=== PATIENT | female | born 1955 | race Hispanic/Latino ===

== ENCOUNTER 2021-01-11 11:56 | Inpatient (IN) | payer MEDICARE ==
[2021-01-11] MEDS ORDERED: oxyCODONE 5 MG TAB PO SCH (13:30)
[2021-01-11] MEDS ORDERED: Lidocaine 4% Topical Sol 50 ML BOT TOP PRN (14:25)
[2021-01-11] MEDS ORDERED: Ondansetron ODT 4 MG TAB PO PRN ×2 (14:26→19:40)
[2021-01-11] MEDS: fentaNYL 50 mcg/hour Patch TD SCH (14:58)
[2021-01-11] MEDS: HumuLIN 70/30 (300 UNITS/3 ML VIAL) SC SCH (16:56)
[2021-01-11] MEDS: oxyCODONE 5 MG TAB PO PRN (19:20)
[2021-01-11] MEDS ORDERED: Loperamide HCl 2 MG CAP PO PRN ×4 (19:40)
[2021-01-11] MEDS ORDERED: Bisacodyl 10 MG SUPP PR PRN (19:40)
[2021-01-11] MEDS ORDERED: Senokot S 8.6-50 MG TAB PO PRN (19:40)
[2021-01-11] MEDS ORDERED: Sodium Chloride 0.65% Nasal 44 ML BOT EA NARE PRN (19:40)
[2021-01-11] MEDS ORDERED: Calcium Carbonate 500 MG ChewTAB PO PRN (19:40)
[2021-01-11] MEDS ORDERED: Bisacodyl 5 MG TAB PO PRN (19:40)
[2021-01-11] MEDS ORDERED: Benzonatate 100 MG CAP PO PRN (19:40)
[2021-01-11] MEDS ORDERED: Mirtazapine 15 MG TAB PO SCH (21:00)
[2021-01-11] MEDS: Atorvastatin Calcium 40 MG TAB PO SCH (21:16)
[2021-01-11] MEDS: Gabapentin 300 MG CAP PO SCH (21:16)
[2021-01-11] MEDS: HYDROcodone/Acetaminophen 10/325 mg Tablet PO PRN (21:17)
[2021-01-11] MEDS: Amiodarone 200 MG TAB PO SCH (21:17)
[2021-01-11] MEDS: Famotidine 20 MG TAB PO SCH (21:18)
[2021-01-11] MEDS ORDERED: Famotidine 20 MG TAB ONE (22:02)
[2021-01-12] MEDS: oxyCODONE 5 MG TAB PO PRN ×3 (01:34→18:34)
[2021-01-12] MEDS: Levothyroxine Sodium 125 MCG TAB PO SCH (05:55)
[2021-01-12 07:08] LABS: Anion Gap 18 mmol/L (10-20); BUN (Urea Nitrogen) 37 mg/dL (9.8-20.1); Calc. Creatinine Clearance 21 mL/min (70-130); Calcium 8.3 mg/dL (7.8-10.44); Carbon Dioxide 25 mmol/L (23-31); Chloride 94 mmol/L (98-107); Glucose 76 mg/dL (80-115); Potassium 4.6 mmol/L (3.5-5.1); Sodium 132 mmol/L (136-145)
[2021-01-12 07:26] LABS: Hemoglobin 8.5 g/dL (12.0-16.0); Mean Corpuscular HGB CONC 28.7 g/dL (32.0-36.0); Mean Corpuscular Hemoglobin 26.9 pg (27.0-31.0); Mean Corpuscular Volume 93.8 fL (78.0-98.0); Mean Platelet Volume 6.8 fL (7.4-10.4); Platelet Count 234 thou/uL (130-400); Red Blood Cell (RBC) Count 3.14 mill/uL (4.20-5.40); White Blood Cell (WBC) Count 8.2 thou/uL (4.8-10.8)
[2021-01-12 07:27] LABS: #Basophils 0.1 thou/uL (0.0-0.2); #Eosinphils 0.2 thou/uL (0.0-0.7); #Lymphocytes 1.6 thou/uL (1.20-3.40); #Monocytes 0.7 thou/uL (0.11-0.59); #Neutrophils 5.6 thou/uL (1.40-6.50); %Basophils 0.9 % (0.0-1.0); %Eosinophils 2.9 % (0.0-10.0); %Lymphocytes 19.3 % (21.0-51.0); %Monocytes 8.6 % (0.0-10.0); %Neutrophils 68.3 % (42.0-75.0)
[2021-01-12 08:29] LABS: SARS-CoV-2 PCR by NAA Not Detected (NotDetected)
[2021-01-12] MEDS: HumuLIN 70/30 (300 UNITS/3 ML VIAL) SC SCH ×2 (08:30→18:32)
[2021-01-12] MEDS: Lactinex Tablet PO SCH (08:42)
[2021-01-12] MEDS: Enoxaparin Sodium 30 MG/0.3 ML SYRINGE SC SCH (08:42)
[2021-01-12] MEDS: Gabapentin 300 MG CAP PO SCH ×2 (08:43→20:58)
[2021-01-12] MEDS: Ferrous Sulfate 325 MG TAB PO SCH (08:46)
[2021-01-12] MEDS: HYDROcodone/Acetaminophen 10/325 mg Tablet PO PRN ×2 (08:46→21:00)
[2021-01-12] MEDS: Amiodarone 200 MG TAB PO SCH ×2 (08:46→20:58)
[2021-01-12] MEDS: Mirtazapine 15 MG TAB PO SCH (20:58)
[2021-01-12] MEDS: Atorvastatin Calcium 40 MG TAB PO SCH (20:59)
[2021-01-12] MEDS: Famotidine 20 MG TAB PO SCH (20:59)
[2021-01-13] MEDS: Levothyroxine Sodium 125 MCG TAB PO SCH (05:55)
[2021-01-13] MEDS: Enoxaparin Sodium 30 MG/0.3 ML SYRINGE SC SCH (08:29)
[2021-01-13] MEDS: HYDROcodone/Acetaminophen 10/325 mg Tablet PO PRN ×2 (08:30→12:34)
[2021-01-13] MEDS: Amiodarone 200 MG TAB PO SCH ×2 (08:32→20:41)
[2021-01-13] MEDS: Gabapentin 300 MG CAP PO SCH ×2 (08:32→20:41)
[2021-01-13] MEDS: Lactinex Tablet PO SCH (08:33)
[2021-01-13] MEDS: Mirtazapine 15 MG TAB PO SCH ×2 (08:33→20:42)
[2021-01-13] MEDS: Ferrous Sulfate 325 MG TAB PO SCH (08:34)
[2021-01-13] MEDS: HumuLIN 70/30 (300 UNITS/3 ML VIAL) SC SCH ×2 (08:38→18:05)
[2021-01-13] MEDS: Atorvastatin Calcium 40 MG TAB PO SCH (20:41)
[2021-01-13] MEDS: Famotidine 20 MG TAB PO SCH (20:41)
[2021-01-14] MEDS: Levothyroxine Sodium 125 MCG TAB PO SCH (05:37)
[2021-01-14] MEDS: HYDROcodone/Acetaminophen 10/325 mg Tablet PO PRN ×3 (06:13→17:23)
[2021-01-14] MEDS: Ferrous Sulfate 325 MG TAB PO SCH (08:00)
[2021-01-14] MEDS: HumuLIN 70/30 (300 UNITS/3 ML VIAL) SC SCH ×2 (08:01→17:44)
[2021-01-14] MEDS: Gabapentin 300 MG CAP PO SCH ×2 (08:03→19:59)
[2021-01-14] MEDS: Mirtazapine 15 MG TAB PO SCH ×2 (08:05→19:59)
[2021-01-14] MEDS: Amiodarone 200 MG TAB PO SCH ×2 (08:06→20:00)
[2021-01-14] MEDS: Lactinex Tablet PO SCH (08:06)
[2021-01-14] MEDS: Enoxaparin Sodium 30 MG/0.3 ML SYRINGE SC SCH (08:09)
[2021-01-14] MEDS: fentaNYL 50 mcg/hour Patch TD SCH (17:30)
[2021-01-14] MEDS: Famotidine 20 MG TAB PO SCH (20:00)
[2021-01-14] MEDS: Atorvastatin Calcium 40 MG TAB PO SCH (20:00)
[2021-01-15 07:00] LABS: Albumin 2.4 g/dL (3.4-4.8); Anion Gap 17 mmol/L (10-20); BUN (Urea Nitrogen) 21 mg/dL (9.8-20.1); Bilirubin, Total 0.6 mg/dL (0.2-1.2); Calc. Creatinine Clearance 37 mL/min (70-130); Calcium 8.5 mg/dL (7.8-10.44); Carbon Dioxide 28 mmol/L (23-31); Chloride 95 mmol/L (98-107); Glucose 144 mg/dL (80-115); Protein, Total 6.7 g/dL (5.8-8.1); Sodium 136 mmol/L (136-145)
[2021-01-15 07:01] LABS: ALT (SGPT) 20 U/L (8-55); AST (SGOT) 34 U/L (5-34); Alkaline Phosphatase 159 U/L (40-110); Globulin 4.3 g/dL (2.4-3.5)
[2021-01-15] MEDS: Levothyroxine Sodium 125 MCG TAB PO SCH (07:19)
[2021-01-15 07:25] LABS: #Basophils 0.1 thou/uL (0.0-0.2); #Eosinphils 0.1 thou/uL (0.0-0.7); #Lymphocytes 1.7 thou/uL (1.20-3.40); #Monocytes 0.8 thou/uL (0.11-0.59); #Neutrophils 6.3 thou/uL (1.40-6.50); %Basophils 0.7 % (0.0-1.0); %Eosinophils 1.6 % (0.0-10.0); %Lymphocytes 18.6 % (21.0-51.0); %Neutrophils 70.1 % (42.0-75.0); Hemoglobin 7.3 g/dL (12.0-16.0); Mean Corpuscular HGB CONC 29.9 g/dL (32.0-36.0); Mean Corpuscular Hemoglobin 27.2 pg (27.0-31.0); Mean Corpuscular Volume 91.1 fL (78.0-98.0); Mean Platelet Volume 6.8 fL (7.4-10.4); Platelet Count 333 thou/uL (130-400); RBC Distribution Width 16.8 % (11.5-14.5); Red Blood Cell (RBC) Count 2.66 mill/uL (4.20-5.40)
[2021-01-15] MEDS: Amiodarone 200 MG TAB PO SCH ×2 (08:42→21:06)
[2021-01-15] MEDS: Lactinex Tablet PO SCH (08:42)
[2021-01-15] MEDS: Ferrous Sulfate 325 MG TAB PO SCH (08:42)
[2021-01-15] MEDS: Enoxaparin Sodium 30 MG/0.3 ML SYRINGE SC SCH (08:42)
[2021-01-15] MEDS: Gabapentin 300 MG CAP PO SCH ×2 (08:43→21:05)
[2021-01-15] MEDS: Mirtazapine 15 MG TAB PO SCH ×2 (08:43→21:05)
[2021-01-15] MEDS: HumuLIN 70/30 (300 UNITS/3 ML VIAL) SC SCH ×2 (08:45→17:28)
[2021-01-15] MEDS: HYDROcodone/Acetaminophen 10/325 mg Tablet PO PRN ×2 (12:06→21:06)
[2021-01-15] MEDS: oxyCODONE 5 MG TAB PO PRN (13:20)
[2021-01-15] MEDS: Cefepime 1 GM in Sodium Chloride 0.9% 100 ML IVPB SCH (14:25)
[2021-01-15] MEDS: Famotidine 20 MG TAB PO SCH (21:05)
[2021-01-15] MEDS: Atorvastatin Calcium 40 MG TAB PO SCH (21:05)
[2021-01-16] MEDS: Cefepime 1 GM in Sodium Chloride 0.9% 100 ML IVPB SCH (01:06)
[2021-01-16] MEDS: HYDROcodone/Acetaminophen 10/325 mg Tablet PO PRN ×3 (05:35→17:39)
[2021-01-16] MEDS: Levothyroxine Sodium 125 MCG TAB PO SCH (05:35)
[2021-01-16 05:57] LABS: Anion Gap 15 mmol/L (10-20); BUN (Urea Nitrogen) 32 mg/dL (9.8-20.1); Calc. Creatinine Clearance 27 mL/min (70-130); Calcium 8.4 mg/dL (7.8-10.44); Carbon Dioxide 29 mmol/L (23-31); Chloride 97 mmol/L (98-107); Glucose 155 mg/dL (80-115); Potassium 4.1 mmol/L (3.5-5.1); Sodium 137 mmol/L (136-145)
[2021-01-16 06:00] LABS: Anisocytosis SLIGHT = 6-15 cells (100X) (0-5/hpf); Band 11 % (5-11); Eosinophils 3 % (0-10); Hemoglobin 6.6 g/dL (12.0-16.0); Hypochromia SLIGHT = 6-15 cells (100X) (0-5/hpf); Lymphocytes 10 % (21-51); MDiff Complete? YES; Mean Corpuscular HGB CONC 28.9 g/dL (32.0-36.0); Mean Corpuscular Hemoglobin 26.9 pg (27.0-31.0); Mean Platelet Volume 6.8 fL (7.4-10.4); Monocytes 1 % (0-10); Neutrophil 75 % (42-75); Platelet Count 319 thou/uL (130-400); Platelet Morphology Comment Appears Adequate; Poikilocytosis SLIGHT = 6-15 cells (100X) (0-5/hpf); Polychromasia SLIGHT = 2-3 cells (100X) (0-2/hpf); RBC Distribution Width 16.9 % (11.5-14.5); Red Blood Cell (RBC) Count 2.44 mill/uL (4.20-5.40); White Blood Cell (WBC) Count 7.9 thou/uL (4.8-10.8)
[2021-01-16] MEDS: Mirtazapine 15 MG TAB PO SCH ×2 (08:44→20:59)
[2021-01-16] MEDS: Amiodarone 200 MG TAB PO SCH ×2 (08:44→21:00)
[2021-01-16] MEDS: Lactinex Tablet PO SCH (08:45)
[2021-01-16] MEDS: Enoxaparin Sodium 30 MG/0.3 ML SYRINGE SC SCH (08:45)
[2021-01-16] MEDS: Ferrous Sulfate 325 MG TAB PO SCH (08:45)
[2021-01-16] MEDS: Gabapentin 300 MG CAP PO SCH ×2 (08:45→21:00)
[2021-01-16] MEDS: HumuLIN 70/30 (300 UNITS/3 ML VIAL) SC SCH ×2 (08:46→17:39)
[2021-01-16] MEDS: oxyCODONE 5 MG TAB PO PRN (13:51)
[2021-01-16] MEDS: Famotidine 20 MG TAB PO SCH (20:58)
[2021-01-16] MEDS: Cefepime 0.5 GM in Sodium Chloride 0.9% 100 ML IVPB SCH (20:58)
[2021-01-16] MEDS: Atorvastatin Calcium 40 MG TAB PO SCH (20:59)
[2021-01-17] MEDS: HYDROcodone/Acetaminophen 10/325 mg Tablet PO PRN ×3 (03:54→18:47)
[2021-01-17] MEDS: Levothyroxine Sodium 125 MCG TAB PO SCH (05:16)
[2021-01-17 05:56] LABS: #Basophils 0.1 thou/uL (0.0-0.2); #Eosinphils 0.3 thou/uL (0.0-0.7); #Lymphocytes 1.1 thou/uL (1.20-3.40); #Monocytes 0.7 thou/uL (0.11-0.59); #Neutrophils 7.1 thou/uL (1.40-6.50); %Basophils 0.8 % (0.0-1.0); %Lymphocytes 12.1 % (21.0-51.0); %Monocytes 7.3 % (0.0-10.0); %Neutrophils 76.9 % (42.0-75.0); Hemoglobin 8.3 g/dL (12.0-16.0); Mean Corpuscular Hemoglobin 27.5 pg (27.0-31.0); Mean Corpuscular Volume 91.8 fL (78.0-98.0); Mean Platelet Volume 6.3 fL (7.4-10.4); Platelet Count 318 thou/uL (130-400); RBC Distribution Width 17.3 % (11.5-14.5); White Blood Cell (WBC) Count 9.2 thou/uL (4.8-10.8)
[2021-01-17] MEDS: HumuLIN 70/30 (300 UNITS/3 ML VIAL) SC SCH ×2 (08:14→18:56)
[2021-01-17] MEDS: Enoxaparin Sodium 30 MG/0.3 ML SYRINGE SC SCH (08:15)
[2021-01-17] MEDS: Mirtazapine 15 MG TAB PO SCH ×2 (08:15→19:58)
[2021-01-17] MEDS: Gabapentin 300 MG CAP PO SCH ×2 (08:16→19:58)
[2021-01-17] MEDS: Amiodarone 200 MG TAB PO SCH ×2 (08:17→19:58)
[2021-01-17] MEDS: Ferrous Sulfate 325 MG TAB PO SCH (08:17)
[2021-01-17] MEDS: Lactinex Tablet PO SCH (08:17)
[2021-01-17] MEDS: oxyCODONE 5 MG TAB PO PRN (11:20)
[2021-01-17] MEDS: fentaNYL 50 mcg/hour Patch TD SCH (18:55)
[2021-01-17] MEDS: Famotidine 20 MG TAB PO SCH (19:58)
[2021-01-17] MEDS: Atorvastatin Calcium 40 MG TAB PO SCH (19:58)
[2021-01-17] MEDS: Cefepime 0.5 GM in Sodium Chloride 0.9% 100 ML IVPB SCH (19:59)
[2021-01-18] MEDS: Levothyroxine Sodium 125 MCG TAB PO SCH (05:35)
[2021-01-18] MEDS: HYDROcodone/Acetaminophen 10/325 mg Tablet PO PRN ×2 (05:35→11:09)
[2021-01-18] MEDS: HumuLIN 70/30 (300 UNITS/3 ML VIAL) SC SCH ×2 (08:19→16:14)
[2021-01-18] MEDS: Ferrous Sulfate 325 MG TAB PO SCH (08:19)
[2021-01-18] MEDS: Amiodarone 200 MG TAB PO SCH ×2 (08:19→21:12)
[2021-01-18] MEDS: Gabapentin 300 MG CAP PO SCH ×2 (08:20→21:11)
[2021-01-18] MEDS: Enoxaparin Sodium 30 MG/0.3 ML SYRINGE SC SCH (08:20)
[2021-01-18] MEDS: Lactinex Tablet PO SCH (08:22)
[2021-01-18] MEDS: Mirtazapine 15 MG TAB PO SCH ×2 (08:22→21:12)
[2021-01-18] MEDS: oxyCODONE 5 MG TAB PO PRN (16:12)
[2021-01-18] MEDS ORDERED: Sodium Chloride 0.9% 10 ML ONE (20:04)
[2021-01-18] MEDS: Cefepime 0.5 GM in Sodium Chloride 0.9% 100 ML IVPB SCH (21:11)
[2021-01-18] MEDS: Atorvastatin Calcium 40 MG TAB PO SCH (21:13)
[2021-01-18] MEDS: Famotidine 20 MG TAB PO SCH (21:13)
[2021-01-19] MEDS ORDERED: Dextrose 50% Abboject 50 ML SYRINGE IVP PRN (02:30)
[2021-01-19] MEDS ORDERED: Dextrose 5% in Water 1,000 ML IV PRN (02:30)
[2021-01-19] MEDS: Levothyroxine Sodium 125 MCG TAB PO SCH (05:05)
[2021-01-19 06:45] LABS: Anisocytosis SLIGHT = 6-15 cells (100X) (0-5/hpf); Hemoglobin 8.6 g/dL (12.0-16.0); Hypochromia SLIGHT = 6-15 cells (100X) (0-5/hpf); MDiff Complete? YES; Mean Corpuscular Hemoglobin 26.5 pg (27.0-31.0); Mean Corpuscular Volume 91.7 fL (78.0-98.0); Mean Platelet Volume 6.6 fL (7.4-10.4); Platelet Count 320 thou/uL (130-400); RBC Distribution Width 17.7 % (11.5-14.5); Red Blood Cell (RBC) Count 3.25 mill/uL (4.20-5.40); Spherocytes SLIGHT = 1-5 cells (100X) (None Seen); White Blood Cell (WBC) Count 8.7 thou/uL (4.8-10.8)
[2021-01-19 06:47] LABS: Platelet Morphology Comment Appears Adequate
[2021-01-19] MEDS: HumuLIN 70/30 (300 UNITS/3 ML VIAL) SC SCH ×2 (07:45→16:14)
[2021-01-19] MEDS: Lactinex Tablet PO SCH (07:46)
[2021-01-19] MEDS: Enoxaparin Sodium 30 MG/0.3 ML SYRINGE SC SCH (07:46)
[2021-01-19] MEDS: Gabapentin 300 MG CAP PO SCH ×2 (07:46→20:58)
[2021-01-19] MEDS: oxyCODONE 5 MG TAB PO PRN ×2 (07:47→16:12)
[2021-01-19] MEDS: Ferrous Sulfate 325 MG TAB PO SCH (07:47)
[2021-01-19] MEDS: Mirtazapine 15 MG TAB PO SCH ×2 (07:47→20:59)
[2021-01-19] MEDS: Amiodarone 200 MG TAB PO SCH ×2 (07:48→20:58)
[2021-01-19] MEDS: HYDROcodone/Acetaminophen 10/325 mg Tablet PO PRN ×2 (10:13→18:15)
[2021-01-19] MEDS: Famotidine 20 MG TAB PO SCH (20:58)
[2021-01-19] MEDS: Cefepime 0.5 GM in Sodium Chloride 0.9% 100 ML IVPB SCH (20:58)
[2021-01-19] MEDS: Atorvastatin Calcium 40 MG TAB PO SCH (20:58)
[2021-01-19] MEDS ORDERED: Sodium Chloride 0.9% 20 ML ONE (21:06)
[2021-01-20] MEDS: Levothyroxine Sodium 125 MCG TAB PO SCH (05:26)
[2021-01-20] MEDS: oxyCODONE 5 MG TAB PO PRN ×3 (06:18→23:14)
[2021-01-20] MEDS: Mirtazapine 15 MG TAB PO SCH ×2 (09:25→20:41)
[2021-01-20] MEDS: HYDROcodone/Acetaminophen 10/325 mg Tablet PO PRN (09:25)
[2021-01-20] MEDS: Gabapentin 300 MG CAP PO SCH ×2 (09:25→20:41)
[2021-01-20] MEDS: Ferrous Sulfate 325 MG TAB PO SCH (09:26)
[2021-01-20] MEDS: Amiodarone 200 MG TAB PO SCH ×2 (09:26→20:41)
[2021-01-20] MEDS: Lactinex Tablet PO SCH (09:27)
[2021-01-20] MEDS: HumuLIN 70/30 (300 UNITS/3 ML VIAL) SC SCH ×2 (09:27→16:57)
[2021-01-20] MEDS: Enoxaparin Sodium 30 MG/0.3 ML SYRINGE SC SCH (09:28)
[2021-01-20] MEDS: fentaNYL 50 mcg/hour Patch TD SCH (14:43)
[2021-01-20 20:11] LABS: SARS-CoV-2 PCR by NAA Not Detected (NotDetected)
[2021-01-20] MEDS: Acetaminophen 325 MG TAB PO PRN (20:40)
[2021-01-20] MEDS: Atorvastatin Calcium 40 MG TAB PO SCH (20:41)
[2021-01-20] MEDS: Cefepime 0.5 GM in Sodium Chloride 0.9% 100 ML IVPB SCH (20:42)
[2021-01-20] MEDS: Famotidine 20 MG TAB PO SCH (20:42)
[2021-01-21] MEDS: HYDROcodone/Acetaminophen 10/325 mg Tablet PO PRN ×2 (00:32→08:24)
[2021-01-21] MEDS: oxyCODONE 5 MG TAB PO PRN ×2 (03:37→16:57)
[2021-01-21] MEDS: Levothyroxine Sodium 125 MCG TAB PO SCH (05:05)
[2021-01-21] MEDS: Lactinex Tablet PO SCH (08:21)
[2021-01-21] MEDS: Enoxaparin Sodium 30 MG/0.3 ML SYRINGE SC SCH (08:21)
[2021-01-21] MEDS: Gabapentin 300 MG CAP PO SCH ×2 (08:21→21:03)
[2021-01-21] MEDS: HumuLIN 70/30 (300 UNITS/3 ML VIAL) SC SCH ×2 (08:21→16:59)
[2021-01-21] MEDS: Amiodarone 200 MG TAB PO SCH ×2 (08:22→21:03)
[2021-01-21] MEDS: Ferrous Sulfate 325 MG TAB PO SCH (08:22)
[2021-01-21] MEDS: Mirtazapine 15 MG TAB PO SCH ×2 (08:22→21:03)
[2021-01-21] MEDS ORDERED: Sodium Chloride 0.9% 10 ML ONE (20:42)
[2021-01-21] MEDS: Famotidine 20 MG TAB PO SCH (21:03)
[2021-01-21] MEDS: Atorvastatin Calcium 40 MG TAB PO SCH (21:03)
[2021-01-21] MEDS: Cefepime 0.5 GM in Sodium Chloride 0.9% 100 ML IVPB SCH (21:04)
[2021-01-22] MEDS: Levothyroxine Sodium 125 MCG TAB PO SCH (05:21)
[2021-01-22] MEDS: Acetaminophen 325 MG TAB PO PRN (06:13)
[2021-01-22 07:35] LABS: Anisocytosis MODERATE=16-30 cells (100X) (0-5/hpf); Band 6 % (5-11); Hemoglobin 8.7 g/dL (12.0-16.0); Hypochromia MODERATE=16-30 cells (100X) (0-5/hpf); Lymphocytes 31 % (21-51); MDiff Complete? YES; Mean Corpuscular HGB CONC 29.8 g/dL (32.0-36.0); Mean Corpuscular Hemoglobin 27.1 pg (27.0-31.0); Mean Corpuscular Volume 91.1 fL (78.0-98.0); Mean Platelet Volume 6.7 fL (7.4-10.4); Microcytosis SLIGHT = 6-15 cells (100X) (0-5/hpf); Monocytes 10 % (0-10); Neutrophil 42 % (42-75); Platelet Count 266 thou/uL (130-400); Platelet Morphology Comment Appears Adequate; Poikilocytosis MODERATE=16-30 cells (100X) (0-5/hpf); RBC Distribution Width 16.9 % (11.5-14.5); Reactive Lymphocytes 11 % (0-10); White Blood Cell (WBC) Count 10.4 thou/uL (4.8-10.8)
[2021-01-22] MEDS: HumuLIN 70/30 (300 UNITS/3 ML VIAL) SC SCH ×2 (08:10→17:26)
[2021-01-22] MEDS: Ferrous Sulfate 325 MG TAB PO SCH (08:11)
[2021-01-22] MEDS: Enoxaparin Sodium 30 MG/0.3 ML SYRINGE SC SCH (08:11)
[2021-01-22] MEDS: Gabapentin 300 MG CAP PO SCH ×2 (08:11→21:24)
[2021-01-22] MEDS: Amiodarone 200 MG TAB PO SCH ×2 (08:11→21:26)
[2021-01-22] MEDS: Lactinex Tablet PO SCH (08:12)
[2021-01-22] MEDS: Mirtazapine 15 MG TAB PO SCH ×2 (08:12→21:26)
[2021-01-22] MEDS: HYDROcodone/Acetaminophen 10/325 mg Tablet PO PRN ×3 (08:13→22:28)
[2021-01-22] MEDS: Cefepime 0.5 GM in Sodium Chloride 0.9% 100 ML IVPB SCH (21:24)
[2021-01-22] MEDS: Famotidine 20 MG TAB PO SCH (21:25)
[2021-01-22] MEDS: Atorvastatin Calcium 40 MG TAB PO SCH (21:26)
[2021-01-23] MEDS: HYDROcodone/Acetaminophen 10/325 mg Tablet PO PRN ×3 (04:43→20:47)
[2021-01-23] MEDS: Levothyroxine Sodium 125 MCG TAB PO SCH (04:44)
[2021-01-23 06:30] VITALS: BMI 43.2
[2021-01-23] MEDS: Ferrous Sulfate 325 MG TAB PO SCH (08:37)
[2021-01-23] MEDS: Enoxaparin Sodium 30 MG/0.3 ML SYRINGE SC SCH (08:37)
[2021-01-23] MEDS: HumuLIN 70/30 (300 UNITS/3 ML VIAL) SC SCH ×2 (08:37→16:59)
[2021-01-23] MEDS: Amiodarone 200 MG TAB PO SCH ×2 (08:37→20:50)
[2021-01-23] MEDS: Gabapentin 300 MG CAP PO SCH ×2 (08:38→20:51)
[2021-01-23] MEDS: Lactinex Tablet PO SCH (08:38)
[2021-01-23] MEDS: Mirtazapine 15 MG TAB PO SCH ×2 (08:39→20:50)
[2021-01-23] MEDS: fentaNYL 50 mcg/hour Patch TD SCH (14:46)
[2021-01-23] MEDS: Atorvastatin Calcium 40 MG TAB PO SCH (20:50)
[2021-01-23] MEDS: Famotidine 20 MG TAB PO SCH (20:50)
[2021-01-23] MEDS: Cefepime 0.5 GM in Sodium Chloride 0.9% 100 ML IVPB SCH (20:51)
[2021-01-24] MEDS: HYDROcodone/Acetaminophen 10/325 mg Tablet PO PRN ×2 (03:59→20:59)
[2021-01-24] MEDS: Levothyroxine Sodium 125 MCG TAB PO SCH (05:14)
[2021-01-24 06:47] LABS: Anisocytosis MODERATE=16-30 cells (100X) (0-5/hpf); Band 2 % (5-11); Eosinophils 6 % (0-10); Hemoglobin 7.7 g/dL (12.0-16.0); Hypochromia MARKED = >30 cells (100X) (0-5/hpf); Lymphocytes 8 % (21-51); MDiff Complete? YES; Mean Corpuscular Hemoglobin 26.7 pg (27.0-31.0); Mean Corpuscular Volume 91.9 fL (78.0-98.0); Mean Platelet Volume 7.2 fL (7.4-10.4); Microcytosis MODERATE=15-30 cells (100X) (0-5/hpf); Monocytes 8 % (0-10); Neutrophil 76 % (42-75); Nucleated RBC 2 % (0); Ovalocytes SLIGHT = 2-5 cells (100X) (0-1/hpf); Platelet Count 294 thou/uL (130-400); Platelet Morphology Comment Appears Adequate; Poikilocytosis MODERATE=16-30 cells (100X) (0-5/hpf); RBC Distribution Width 17.4 % (11.5-14.5); Stomatocytes SLIGHT = 2-5 cells (100X) (0-1/hpf); Target Cells SLIGHT = 2-5 cells (100X) (0-1/hpf); White Blood Cell (WBC) Count 9.7 thou/uL (4.8-10.8)
[2021-01-24] MEDS: Enoxaparin Sodium 30 MG/0.3 ML SYRINGE SC SCH (07:37)
[2021-01-24] MEDS: Ferrous Sulfate 325 MG TAB PO SCH (07:38)
[2021-01-24] MEDS: Gabapentin 300 MG CAP PO SCH ×2 (07:38→21:00)
[2021-01-24] MEDS: Lactinex Tablet PO SCH (07:38)
[2021-01-24] MEDS: Amiodarone 200 MG TAB PO SCH ×2 (07:38→21:00)
[2021-01-24] MEDS: Mirtazapine 15 MG TAB PO SCH ×2 (07:38→21:00)
[2021-01-24] MEDS: oxyCODONE 5 MG TAB PO PRN ×2 (07:39→17:01)
[2021-01-24] MEDS: HumuLIN 70/30 (300 UNITS/3 ML VIAL) SC SCH ×2 (07:43→17:04)
[2021-01-24] MEDS: Famotidine 20 MG TAB PO SCH (21:00)
[2021-01-24] MEDS: Atorvastatin Calcium 40 MG TAB PO SCH (21:00)
[2021-01-24] MEDS: Cefepime 0.5 GM in Sodium Chloride 0.9% 100 ML IVPB SCH (21:01)
[2021-01-25] MEDS: oxyCODONE 5 MG TAB PO PRN ×2 (00:20→09:27)
[2021-01-25] MEDS: Levothyroxine Sodium 125 MCG TAB PO SCH (06:00)
[2021-01-25 07:16] LABS: Hemoglobin 7.9 g/dL (12.0-16.0); Mean Corpuscular Volume 91.3 fL (78.0-98.0); White Blood Cell (WBC) Count 9.9 thou/uL (4.8-10.8)
[2021-01-25 07:17] LABS: Anisocytosis MODERATE=16-30 cells (100X) (0-5/hpf); Manual Diff?? YES; Mean Corpuscular HGB CONC 29.6 g/dL (32.0-36.0); Mean Platelet Volume 6.7 fL (7.4-10.4); Ovalocytes SLIGHT = 2-5 cells (100X) (0-1/hpf); Platelet Count 274 thou/uL (130-400); RBC Distribution Width 17.2 % (11.5-14.5)
[2021-01-25 07:18] LABS: Eosinophils 2 % (0-10); Hypochromia MODERATE=16-30 cells (100X) (0-5/hpf); Microcytosis MODERATE=15-30 cells (100X) (0-5/hpf); Monocytes 2 % (0-10); Myelocyte 2 % (0-0); Neutrophil 74 % (42-75); Poikilocytosis MODERATE=16-30 cells (100X) (0-5/hpf); Reactive Lymphocytes 4 % (0-10)
[2021-01-25 07:19] LABS: Band 6 % (5-11); Bite Cells SLIGHT = 2-5 cells (100X) (0-1/hpf); Lymphocytes 10 % (21-51); Stomatocytes SLIGHT = 2-5 cells (100X) (0-1/hpf); Tear Drops SLIGHT = 2-5 cells (100X) (0-1/hpf)
[2021-01-25 07:20] LABS: Platelet Morphology Comment Appears Adequate
[2021-01-25 07:30] LABS: MDiff Complete? YES
[2021-01-25] MEDS: Lactinex Tablet PO SCH (09:24)
[2021-01-25] MEDS: Enoxaparin Sodium 30 MG/0.3 ML SYRINGE SC SCH (09:24)
[2021-01-25] MEDS: Mirtazapine 15 MG TAB PO SCH (09:24)
[2021-01-25] MEDS: HumuLIN 70/30 (300 UNITS/3 ML VIAL) SC SCH ×2 (09:24→17:20)
[2021-01-25] MEDS: Ferrous Sulfate 325 MG TAB PO SCH (09:25)
[2021-01-25] MEDS: Amiodarone 200 MG TAB PO SCH (09:25)
[2021-01-25] MEDS: Gabapentin 300 MG CAP PO SCH (09:25)
[2021-01-25] MEDS: HYDROcodone/Acetaminophen 10/325 mg Tablet PO PRN (13:24)
[2021-01-25 14:02] VITALS: BP 112/50; TEMP 98.1
[2021-01-25] MEDS ORDERED: fentaNYL 50 mcg/hour Patch TD SCH (15:00)
== END 2021-01-25 18:00 | disposition short-term general hospital (02) | DRG 559 ==
LOC: NAV ACUTE 12:59
PROVIDERS: ADMIT Family Medicine; ATTEND Family Medicine
PROC: 30233N1 Transfusion of Nonautologous Red Blood Cells into Peripheral Vein, Percutaneous Approach (ICD-10-PCS; principal; 2021-01-16)
PROC: 5A1D70Z Performance of Urinary Filtration, Intermittent, Less than 6 Hours Per Day (ICD-10-PCS; 2021-01-17)
DX: Z47.81 Encounter for orthopedic aftercare following surgical amputation (principal); L89.154 Pressure ulcer of sacral region, stage 4; N18.6 End stage renal disease; I50.32 Chronic diastolic (congestive) heart failure; I13.2 Hypertensive heart and chronic kidney disease with heart failure and with stage 5 chronic kidney disease, or end stage renal disease; T87.43 Infection of amputation stump, right lower extremity; I25.10 Atherosclerotic heart disease of native coronary artery without angina pectoris; I48.91 Unspecified atrial fibrillation; F40.240 Claustrophobia; E78.5 Hyperlipidemia, unspecified; E03.9 Hypothyroidism, unspecified; D63.1 Anemia in chronic kidney disease; E11.22 Type 2 diabetes mellitus with diabetic chronic kidney disease; E11.42 Type 2 diabetes mellitus with diabetic polyneuropathy; G89.29 Other chronic pain; F41.9 Anxiety disorder, unspecified; Z20.822 Contact with and (suspected) exposure to COVID-19; R56.9 Unspecified convulsions; Y83.5 Amputation of limb(s) as the cause of abnormal reaction of the patient, or of later complication, without mention of misadventure at the time of the procedure; Z99.2 Dependence on renal dialysis; Z90.5 Acquired absence of kidney; Z79.4 Long term (current) use of insulin; Z79.02 Long term (current) use of antithrombotics/antiplatelets; Z79.899 Other long term (current) drug therapy; Z79.01 Long term (current) use of anticoagulants
CPT/HCPCS: 36415; 36416; 36430; 71045; 80048; 80053; 82274; 83605; 85007; 85025; 85027; 85652; 86140; 86850; 86900; 86901; 87040; 87070; 87077; 87186; 87205; 97602; J0692; J1610; J1650; J1815; J3490; P9016; U0003; U0005

== ENCOUNTER 2021-04-25 11:50 | Emergency (ER) | payer MEDICARE, MEDICAID ==
[2021-04-25 13:04] LABS: #Basophils 0.1 thou/uL (0.0-0.2); #Eosinphils 0.3 thou/uL (0.0-0.7); #Lymphocytes 1.8 thou/uL (1.20-3.40); #Monocytes 0.8 thou/uL (0.11-0.59); #Neutrophils 4.8 thou/uL (1.40-6.50); %Basophils 1.4 % (0.0-1.0); %Eosinophils 3.3 % (0.0-10.0); %Lymphocytes 23.3 % (21.0-51.0); %Monocytes 9.7 % (0.0-10.0); %Neutrophils 62.2 % (42.0-75.0); ALT (SGPT) 7 U/L (8-55); AST (SGOT) 18 U/L (5-34); Albumin 1.7 g/dL (3.4-4.8); Alkaline Phosphatase 150 U/L (40-110); Anion Gap 14 mmol/L (10-20); BUN (Urea Nitrogen) 36 mg/dL (9.8-20.1); Bilirubin, Total 0.4 mg/dL (0.2-1.2); Calc. Creatinine Clearance 0 mL/min (70-130); Calcium 8.1 mg/dL (7.8-10.44); Carbon Dioxide 26 mmol/L (23-31); Chloride 98 mmol/L (98-107); Globulin 4.9 g/dL (2.4-3.5); Glucose 153 mg/dL (80-115); Hemoglobin 7.4 g/dL (12.0-16.0); Mean Corpuscular HGB CONC 27.8 g/dL (32.0-36.0); Mean Corpuscular Hemoglobin 27.2 pg (27.0-31.0); Mean Corpuscular Volume 97.8 fL (78.0-98.0); Mean Platelet Volume 6.6 fL (7.4-10.4); Platelet Count 310 thou/uL (130-400); Potassium 4.7 mmol/L (3.5-5.1); Protein, Total 6.6 g/dL (5.8-8.1); RBC Distribution Width 18.7 % (11.5-14.5); Sodium 133 mmol/L (136-145); White Blood Cell (WBC) Count 7.7 thou/uL (4.8-10.8)
[2021-04-25 13:08] LABS: Anisocytosis SLIGHT = 6-15 cells (100X) (0-5/hpf); Hypochromia SLIGHT = 6-15 cells (100X) (0-5/hpf)
[2021-04-25 13:09] LABS: Ovalocytes SLIGHT = 2-5 cells (100X) (0-1/hpf); Tear Drops SLIGHT = 2-5 cells (100X) (0-1/hpf)
[2021-04-25 13:14] LABS: Acetaminophen Less than 6.0 mcg/mL (10.0-30.0); Alcohol Less than 10 mg/dL (Less than 10); Salicylate Less than 8.0 mg/dL (15.0-30.0)
[2021-04-25 13:35] LABS: Bilirubin Moderate (Negative); Blood, Urine Large (Negative); Clarity Cloudy (Clear); Glucose, Urine (Dipstick) Negative (Negative); Ketone, Urine Trace mg/dL (Negative); Leukocyte Large (Negative); Nitrite Positive (Negative); Protein, Urine (Dipstick) 100 mg/dL (Neg-Trace); Specific Gravity, Urine 1.015 (1.005-1.030)
[2021-04-25 13:40] LABS: RBC/HPF Greater than 50 HPF (0-3); Squamous Epithelial 21-50 HPF (0-3); WBC/HPF Greater Than 50 HPF (0-3)
[2021-04-25 13:41] LABS: Bacteria/HPF 4+ HPF (None Seen); Renal Epithelial 21-50 HPF (None Seen); Yeast-Budding 1+ HPF (None Seen); Yeast-Hyphae 3+ HPF (None Seen)
[2021-04-25] MEDS ORDERED: Ondansetron PF 4 MG/2 ML Vial ONE (16:18)
[2021-04-26 13:23] LABS: SARS-CoV-2 PCR by NAA Not Detected (NotDetected)
== END 2021-04-25 18:36 ==
LOC: NAV ERS 11:50
DX: I13.0 Hypertensive heart and chronic kidney disease with heart failure and stage 1 through stage 4 chronic kidney disease, or unspecified chronic kidney disease (principal); I50.9 Heart failure, unspecified; N18.9 Chronic kidney disease, unspecified; N39.0 Urinary tract infection, site not specified; Z20.822 Contact with and (suspected) exposure to COVID-19; Z99.2 Dependence on renal dialysis; E11.9 Type 2 diabetes mellitus without complications; E03.9 Hypothyroidism, unspecified; Z79.4 Long term (current) use of insulin; Z79.02 Long term (current) use of antithrombotics/antiplatelets; Z79.899 Other long term (current) drug therapy
CPT/HCPCS: 36415; 51701; 70450; 71045; 80053; 80307; 81003; 81015; 82553; 83605; 84484; 85025; 86140; 87086; 93005; 94760; 96374; J2405; U0003; U0005

== ENCOUNTER 2021-05-27 23:32 | Emergency (ER) | payer MEDICARE, MEDICAID ==
[2021-05-28 00:08] LABS: #Basophils 0.1 thou/uL (0.0-0.2); #Eosinphils 0.1 thou/uL (0.0-0.7); #Lymphocytes 1.2 thou/uL (1.20-3.40); #Monocytes 0.3 thou/uL (0.11-0.59); #Neutrophils 8.5 thou/uL (1.40-6.50); %Basophils 0.6 % (0.0-1.0); %Lymphocytes 11.8 % (21.0-51.0); %Neutrophils 83.6 % (42.0-75.0); Hemoglobin 8.3 g/dL (12.0-16.0); Mean Corpuscular HGB CONC 30.1 g/dL (32.0-36.0); Mean Corpuscular Hemoglobin 28.8 pg (27.0-31.0); Mean Corpuscular Volume 95.6 fL (78.0-98.0); Mean Platelet Volume 6.4 fL (7.4-10.4); Platelet Count 263 thou/uL (130-400); RBC Distribution Width 18.9 % (11.5-14.5); Red Blood Cell (RBC) Count 2.88 mill/uL (4.20-5.40); White Blood Cell (WBC) Count 10.1 thou/uL (4.8-10.8)
[2021-05-28 00:19] LABS: Bilirubin Moderate (Negative); Blood, Urine Large (Negative); Clarity Slightly Cloudy (Clear); Glucose, Urine (Dipstick) Negative (Negative); Ketone, Urine Trace mg/dL (Negative); Leukocyte Trace (Negative); Nitrite Negative (Negative); Protein, Urine (Dipstick) 100 mg/dL (Neg-Trace); Urobilinogen 0.2 mg/dL (Less than 2)
[2021-05-28 00:23] LABS: ALT (SGPT) 8 U/L (8-55); AST (SGOT) 19 U/L (5-34); Alkaline Phosphatase 156 U/L (40-110); Anion Gap 12 mmol/L (10-20); BUN (Urea Nitrogen) 29 mg/dL (9.8-20.1); Bilirubin, Total 0.6 mg/dL (0.2-1.2); Calc. Creatinine Clearance 0 mL/min (70-130); Calcium 7.6 mg/dL (7.8-10.44); Carbon Dioxide 28 mmol/L (23-31); Chloride 96 mmol/L (98-107); Globulin 4.3 g/dL (2.4-3.5); Glucose 178 mg/dL (80-115); Protein, Total 6.3 g/dL (5.8-8.1); Sodium 132 mmol/L (136-145)
[2021-05-28 00:26] LABS: Bacteria/HPF None Seen HPF (None Seen); RBC/HPF 0-3 HPF (0-3); Squamous Epithelial None Seen HPF (0-3)
[2021-05-28 00:27] LABS: Magnesium 1.6 mg/dL (1.6-2.6)
[2021-05-28] MEDS ORDERED: Cefepime 2 GM VIAL ONE (00:28)
[2021-05-28] MEDS ORDERED: Sodium Chloride 0.9% 100 ML ONE (00:29)
[2021-05-28 00:38] LABS: CKMB 1.4 ng/mL (0-6.6)
[2021-05-28 01:13] LABS: SARS-CoV-2 NAA Rapid Test DETECTED (NotDetected)
== END 2021-05-28 00:52 | disposition short-term general hospital (02) ==
LOC: NAV ERS 23:32
DX: U07.1 COVID-19 (principal); E87.70 Fluid overload, unspecified
CPT/HCPCS: 51701; 71045; 80053; 81003; 81015; 82553; 83605; 83735; 83880; 84484; 85025; 87040; 87086; 87149; 87804; 93005; 94760; 96374; J0692; J3490; U0002